=== PATIENT | male | born 1995 | race Caucasian/White ===

== ENCOUNTER 2022-06-06 13:21 | Outpatient (CLI) | payer MEDICAID ==
[2022-06-06 19:58] LABS: ALBUMIN 4.3 g/dL (3.2-5.5); ALBUMIN/GLOBULIN RATIO 1.3 (1.0-2.2); BILIRUBIN,TOTAL 0.5 mg/dL (0.2-1.0); CALCIUM 9.1 mg/dL (8.5-10.3); CREATININE 0.8 mg/dL (0.6-1.2); POTASSIUM 3.8 mmol/L (3.5-5.0); TOTAL PROTEIN 7.6 g/dL (6.7-8.2)
== END 2022-06-06 13:22 | disposition home or self-care (01) ==
LOC: LAB.S 13:21
PROVIDERS: ATTEND Registered Nurse
DX: E34.9 Endocrine disorder, unspecified (principal)
CPT/HCPCS: 36415; 80053